=== PATIENT | male | born 1955 | race Caucasian/White ===

== ENCOUNTER → 2019-04-09 | Outpatient (CLI) | payer OTHER ==
[2019-04-09 10:59] LABS: CREATININE 1.2 mg/dL (0.7-1.3)
== END ==
LOC: CAT 10:17
PROVIDERS: Internal Medicine Hematology & Oncology
DX: K76.89 Other specified diseases of liver (principal); K56.41 Fecal impaction; K42.9 Umbilical hernia without obstruction or gangrene

== ENCOUNTER → 2019-08-10 | Outpatient (CLI) | payer OTHER ==
[~2019-08-10] VITALS: Ht 172.7 cm; Wt 71.7 kg
--- NOTE | ~2019-08-10 | P ---
[place] [address] PROCEDURE REPORT Name: LELAND LOOMIS Room #: REG [facility] Ron#: [id number] Admission: 08/10/19 Attend Phys: Duane Naranjo Discharge: Date of : 51 Report #: [id number] THIS REPORT FOR: cc: Saad Rosas MD,Duane Lin MD, MD ~ CC: John Rosas DATE OF SERVICE: 08/10/2019 PROCEDURE PERFORMED: Colonoscopy. HISTORY OF PRESENT ILLNESS: The patient is a 63-year-old male with a history of colon polyps, here for routine followup. Denies any symptoms. No family history of colon cancer. DESCRIPTION OF PROCEDURE: The risks and benefits of the procedure were explained to the patient, those risks including but not limited to bleeding, perforation and the risk of sedation. He understood these risks and gave informed consent. Sedation was given using propofol per anesthesia. Next, a digital rectal exam was initially performed, which was normal. Next, using a standard Olympus colonoscope, the scope was placed into the patient's anus and advanced under direct vision to the cecum. The overall prep was excellent. The cecum and ileocecal valve were normal in appearance. Ascending, transverse, descending and sigmoid colon were all normal. The rectal mucosa was normal. On retroflexion, no abnormalities were noted. The scope was then withdrawn and the procedure terminated. The patient tolerated the procedure well. IMPRESSION: Normal colonoscopy. RECOMMENDATIONS: Repeat colonoscopy in 10 years. Thank you for allowing me to participate in his care. By: [id number] Duane Iraheta MD /nt
== END | disposition home or self-care (01) ==
LOC: GI 08:00
DX: Z12.11 Encounter for screening for malignant neoplasm of colon (principal); Z86.010 Personal history of colon polyps; Z98.890 Other specified postprocedural states; Z87.891 Personal history of nicotine dependence; Z79.899 Other long term (current) drug therapy; Z88.0 Allergy status to penicillin

== ENCOUNTER → 2019-11-24 | Outpatient (CLI) | payer OTHER | LOC: CAT 09:06 | PROVIDERS: ATTEND Internal Medicine | DX: Z13.6 Encounter for screening for cardiovascular disorders (principal); E78.00 Pure hypercholesterolemia, unspecified; I25.10 Atherosclerotic heart disease of native coronary artery without angina pectoris ==